=== PATIENT | male | born 1995 | race African-American/Black ===

== ENCOUNTER 2023-08-05 09:12 | Emergency (ER) | payer SELFPAY ==
[2023-08-05] MEDS ORDERED: Lidocaine 4% Cream 5 GM TUBE w/ Tegaderm ONE (09:37)
== END 2023-08-05 10:32 | disposition home or self-care (01) ==
LOC: MADERS 09:12
DX: K64.8 Other hemorrhoids (principal); F17.290 Nicotine dependence, other tobacco product, uncomplicated
CPT/HCPCS: 99283